=== PATIENT | male | born 1985 | race Two or more races ===

== ENCOUNTER 2024-06-09 18:53 | Emergency (ER) | payer OTHER ==
[~2024-06-09] VITALS: Ht 180.3 cm; Wt 74.8 kg
[2024-06-09 19:19] VITALS: BP 133/84; O2SAT 99
[2024-06-09] MEDS ORDERED: POVIDONE-IODINE 118 ML BOTT TOP ONE (22:32)
== END 2024-06-09 23:18 | disposition home or self-care (01) ==
LOC: ER 18:54
DX: S01.111A Laceration without foreign body of right eyelid and periocular area, initial encounter (principal); W45.8XXA Other foreign body or object entering through skin, initial encounter; Y93.18 Activity, surfing, windsurfing and boogie boarding; Y92.832 Beach as the place of occurrence of the external cause